=== PATIENT | male | born 2005 | race Caucasian/White ===

== ENCOUNTER 2024-05-22 10:34 | Emergency (ER) | payer MEDICAID ==
[~2024-05-22] VITALS: Ht 167.6 cm; Wt 58.0 kg
[2024-05-22 10:54] VITALS: O2SAT 97
[2024-05-22 11:25] VITALS: BP 120/61; PULSE 100; RESP 18; TEMP 36.78072; O2SAT 97
== END 2024-05-22 11:28 | disposition home or self-care (01) ==
LOC: ER 10:34
DX: M79.606 Pain in leg, unspecified (principal); Z98.890 Other specified postprocedural states
CPT/HCPCS: 99281